=== PATIENT | male | born 1950 | race Caucasian/White ===

== ENCOUNTER 2023-10-26 15:06 | Emergency (ER) | payer MEDICARE, OTHER ==
[~2023-10-26] VITALS: Ht 177.8 cm; Wt 98.2 kg
[2023-10-26] MEDS ORDERED: AMLODIPINE BES2.5 MG PO (15:22)
[2023-10-26] MEDS ORDERED: COZAAR25 MG PO (15:22)
[2023-10-26] MEDS ORDERED: LIPITOR20 MG PO (15:23)
[2023-10-26 16:12] LABS: INFLUENZA B NAA NEGATIVE (NEGATIVE); RESPIRATORY SYNCYTIAL VIR NAA NEGATIVE (NEGATIVE)
[2023-10-26] MEDS ORDERED: CYCLOBENZAPRINE10 MG PO (16:36)
[2023-10-26] MEDS ORDERED: TAMIFLU75 MG PO (16:36)
[2023-10-26 16:55] VITALS: BP 145/95
== END 2023-10-26 16:56 | disposition home or self-care (01) ==
LOC: ED 15:06
PROVIDERS: Family Medicine
DX: J10.1 Influenza due to other identified influenza virus with other respiratory manifestations (principal); I10 Essential (primary) hypertension; Z79.899 Other long term (current) drug therapy; J44.9 Chronic obstructive pulmonary disease, unspecified
CPT/HCPCS: 71045; 87502; 99283-25; U0002